=== PATIENT | female | born 1970 | race Caucasian/White ===

== ENCOUNTER 2022-04-18 22:20 | Emergency (ER) | payer BC ==
[~2022-04-18 22:20] MED LIST: CALCIUM CHLORIDE 100 MG/ML 10 ML SYRINGE ONE; EPINEPHrine 10 ML SYRINGE (0.1 MG/ML) ONE; SODIUM BICARB 8.4% 50 ML SYR (1 MEQ/ML) ONE
[2022-04-18 23:26] VITALS: PULSE 0; RESP 0
--- NOTE | 2022-04-19 05:50 | ED ---
CPR HPI - General Chief Complaint: Cardiac Arrest/CPR Stated Complaint: Cardiac arrest Time Seen by Provider: 04/18/22 22:54 Source: EMS - History of Present Illness Initial Comments: This is a 51-year-old female who presents emergency department via EMS in cardiac arrest. Is reported that the patient slumped over in her chair while watching TV according to the . EMS did state that they did arrive to the scene approximately 2 minutes after the call went out and the patient had roughly approximately 15 minutes of down time. CPR was started immediately. EMS did state that the had multiple different rhythms and did receive return of spontaneous circulation however and routes, lost pulses once again and CPR was continued. The patient did have any history from the family and EMS did not h ave any further history at this time. The patient was imaging go on arrival and was pulseless and apneic on arrival but was intubated with CPR in progress. No further history was obtained at this time. - Related Data Allergies Allergy/AdvReac Type Severity Reaction Status Date / Time Unable to Assess Allergy Verified 04/18/22 23:23 Review of Systems ROS Statement: Those systems with pertinent positive or pertinent negative responses have been documented in the HPI. Limitations: ROS unobtainable due to patients medical condition General Exam Limitations: altered mental status, physical limitation General appearance: other (Apneic, pulseless) Head exam: Present: other (Congestion noted to the head with blue skin of the head and neck) Eye exam: Present: other (Pupils were fixed and dilated) ENT exam: Present: other (ET tube was in place however bright red blood was coming out of the ET tube during bagging) Neck exam: Present: normal inspection Respiratory exam: Present: decreased breath sounds Cardiovascular Exam: Present: other (Pulseless) GI/Abdominal exam: Present: distended (Severely distended) Extremities exam: Present: other (Bilateral lower extremities were cold to touch) Back exam: Present: normal inspection Neurological exam: Present: other (Patient was apneic, pulseless) Psychiatric exam: Present: other (Patient was apneic, pulseless) Skin exam: Present: dry, cyanosis Course Vital Signs 04/18/22 23:23 Pulse Rate 0 L Respiratory 0 L Rate O2 Sat by Pulse 0 L Oximetry Medical Decision Making - Medical Decision Making Was pt. sent in by a medical professional or institution? @ -No Did you speak to anyone other than the patient for history? @ -EMS Did you review nursing and triage notes? @ -Triage notes were reviewed Were old charts reviewed? @ -There were no outside hospital records to be evaluated or reviewed Differential Diagnosis? @ -Acute saddle PE, ACS, CVA EKG interpreted by me (3pts min.)? @ -[none] X-rays interpreted by me (1pt min.)? @ -[none] CT interpreted by me (1pt min.)? @ -[none] U/S interpreted by me (1pt. min.)? @ -[none] What testing was considered but not performed? (CT, X-rays, U/S, labs)? Why? @Testing including x-ray, CT and EKG were considered however the patient never had return of pulses. The patient's remaining cardiac arrest and did have a TOD of 2231. What meds were considered but not given? Why? @ -[none] Did you discuss the management of the patient with other professionals? @ -No Did you reconcile home meds? @ -[none] Was smoking cessation discussed for >3mins.? @ -[none] Was critical care preformed (if so, how long)? @ -Yes, see above Were there social determinants of health that impacted care today? How? (Homelessness, low income, unemployed, alcoholism, drug addiction, transportation, low edu. Level, literacy, decrease access to med. care, [facility], rehab)? @ -No Was there de-escalation of care discussed even if they declined? (Discuss DNR or withdrawal of care, Hospice)? @ -No What co-morbidities impacted this encounter? (DM, HTN, Smoking, COPD, CAD, Cancer, CVA, Hep., AIDS, mental health diagnosis, sleep apnea, morbid obesity)? @ -Unknown Was patient admitted / discharged? @ -The patient was seen and evaluated emergency department. Immediately on arrival, the patient was brought into the resuscitation bay and CPR was continued. The patient was placed on our monitor and did show V. fib and the patient was shocked. The patient was given multiple doses of epinephrine as well as however continued to remain in asystole. The patient was given calcium chloride here in the emergency department and previously with EMS, the patient received epinephrine as well as bicarb and magnesium sulfate as there was signs of torsades. CPR was continued and there was no cardiac activity noted. Due to the patient's prolonged downtime in the setting of no cardiac activity, cold extremities and hypoxic skin, it was determined to and the CPR and time of was 2230. The patient's primary care physician was contacted regarding this as was the medical imaging specialist. Undiagnosed new problem with uncertain prognosis? @ -[none] Drug Therapy requiring intensive monitoring for toxicity (Heparin, Nitro, Insulin, Cardizem)? @ -[none] Were any procedures done? @ -Yes, CPR Diagnosis/symptom? @ -Cardiac arrest Acute, or Chronic, or Acute on Chronic? @ -Acute Uncomplicated (without systemic symptoms) or Complicated (systemic symptoms)? @ -Complicated Side effects of treatment? @ -[none] Exacerbation, Progression, or Severe Exacerbation] @ -Severe exacerbation Poses a threat to life or bodily function? @ -Yes, patient Critical Care Time Critical Care Time: Yes Total Critical Care Time: 31 Disposition Clinical Impression: Cardiac arrest Disposition: Condition: Critical Referrals: Dereje Nazario MD [Primary Care Provider] - 1-2 days Time of Disposition: 22:31 Preliminary Cause of : Cardiac arrest
== END 2022-04-18 22:31 | disposition expired ==
LOC: EDBD → SUPCPDRO 22:20 → EC 22:20
DX: I46.9 Cardiac arrest, cause unspecified (principal)
CPT/HCPCS: 99285; 92950; J0171